=== PATIENT | male | born 1965 | race Caucasian/White ===

== ENCOUNTER 2018-12-14 15:46 | Outpatient (CLI) | payer BC ==
--- NOTE | 2018-12-14 21:45 | RAD ---
LEFT KNEE THREE VIEWS: 12/14/18 Some mild bony spurring is present, including, in the patellofemoral joint. No fracture, joint space narrowing, or joint effusion was seen. IMPRESSION: Mild degenerative changes. POS: HOME
== END 2018-12-14 15:47 | disposition home or self-care (01) ==
LOC: BURRAD 15:46
PROVIDERS: ATTEND Family Medicine
DX: M25.562 Pain in left knee (principal); G89.29 Other chronic pain; M17.12 Unilateral primary osteoarthritis, left knee